=== PATIENT | female | born 1995 | race Caucasian/White ===

== ENCOUNTER 2025-02-07 11:03 | Inpatient (IN) | payer BC ==
[2025-02-07 12:07] LABS: BASOPHILS ABSOLUTE AUTO 0.1 K/mm3 (0.0-0.2); BASOPHILS PERCENT AUTO 0.9 % (0.0-1.0); EOSINOPHILS ABSOLUTE AUTO 0.1 K/mm3 (0.0-0.4); EOSINOPHILS PERCENT AUTO 1.4 % (0.0-6.0); HEMOGLOBIN 13.8 gm/dl (12.0-16.0); IMMATURE GRAN ABSOLUTE AUTO 0.03 K/mm3 (0.00-0.05); IMMATURE GRAN PERCENT AUTO 0.4 % (0.0-0.4); LYMPHOCYTES ABSOLUTE AUTO 1.1 K/mm3 (1.0-4.8); LYMPHOCYTES PERCENT AUTO 15.3 % (24.0-44.0); MEAN CORPUSCULAR HEMOGLOBIN 30.2 pg (28.0-32.0); MEAN CORPUSCULAR HGB CONC 33.7 g/dl (32.0-36.0); MEAN CORPUSCULAR VOLUME 89.7 fl (83.0-99.0); MEAN PLATELET VOLUME 9.5 fl (9.4-12.3); MONOCYTES ABSOLUTE AUTO 0.9 K/mm3 (0.0-0.8); MONOCYTES PERCENT AUTO 13.4 % (0.0-8.0); NEUTROPHILS ABSOLUTE AUTO 4.8 K/mm3 (1.8-7.7); NEUTROPHILS PERCENT AUTO 68.6 % (41.0-71.0); PLATELET COUNT,PLT 290 K/mm3 (150-400); RED BLOOD CELL COUNT 4.57 M/mm3 (4.10-5.30); WHITE BLOOD CELL COUNT,WBC 6.95 K/mm3 (3.9-11.3)
[2025-02-07 12:18] LABS: APPEARANCE,URINE CLEAR (Clear); BILIRUBIN,URINE 1+ (Negative); COLOR,URINE YELLOW (Yellow); GLUCOSE,URINE NEGATIVE (Negative); KETONES,URINE 1+ (Negative); LEUKOCYTE ESTERASE,URINE NEGATIVE (Negative); NITRITE,URINE NEGATIVE (Negative); OCCULT BLOOD,URINE NEGATIVE (Negative); PH,URINE 6.5 (5.0-8.0); PROTEIN,URINE 1+ (Negative); UROBILINOGEN,URINE 0.2 (0.2-1.0)
[2025-02-07 12:22] LABS: A/G RATIO 0.8 (1-2); ALBUMIN 3.2 g/dl (3.4-5.0); ANION GAP 10.4 (5-15); BILIRUBIN TOTAL 0.3 mg/dL (0.2-1.0); BUN/CREATININE RATIO 6.3 (14-18); C-REACTIVE PROTEIN 9.16 mg/dL (<0.30); CALCIUM 9.1 mg/dL (8.5-10.1); CREATININE 0.8 mg/dL (0.55-1.02); EST CRCL DRUG DOSING (CG) 93.37 mL/min; MAGNESIUM 1.8 mg/dL (1.8-2.4); POTASSIUM,K 3.4 mEq/L (3.5-5.1); PROTEIN TOTAL,TP 7.2 g/dl (6.4-8.2)
[2025-02-07 12:29] LABS: BACTERIA,URINE FEW /hpf (FEW); MUCUS,URINE MANY /hpf (FEW); RBC,URINE 0-5 /hpf (0-5); WBC,URINE 0-5 /hpf (0-5)
[2025-02-07] MEDS: Sodium Chloride 0.9% 10 ML Syringe FLUSH PRN (12:45)
[2025-02-07] MEDS: Iopamidol 612 MG/ML 100 ML Bottle IVPUSH ONE (12:45)
[2025-02-07] MEDS ORDERED: Naloxone 0.4 MG/ML SDV IVPUSH PRN (14:30)
[2025-02-07] MEDS: Sodium Chloride 0.9% 1,000 ML IV ONE (14:41)
[2025-02-07] MEDS: Ketorolac 30 MG/ML SDV IVPUSH ONE (14:42)
[2025-02-07] MEDS: Morphine 4 MG/ML Syringe IVPUSH ONE (14:42)
[2025-02-07] MEDS ORDERED: Ondansetron 4 MG/2 ML SDV IV PRN (15:01)
[2025-02-07] MEDS ORDERED: Acetaminophen 325 MG Tab PO PRN (15:01)
[2025-02-07] MEDS: Nicotine 14 MG/24 Hr Patch TRDERM SCH (19:57)
[2025-02-07] MEDS: Azithromycin 500 MG in Sodium Chloride 0.9% 250 ML IV SCH (19:57)
[2025-02-07] MEDS: Pantoprazole 40 MG Vial IVPUSH SCH (19:57)
[2025-02-07] MEDS: Morphine 2 MG/ML SYRINGE IVPUSH PRN (20:13)
[2025-02-07] MEDS: LORazepam 0.5 MG Tab PO PRN (20:52)
[2025-02-07] MEDS: oxyCODONE 5 MG Tab PO PRN (20:52)
[2025-02-07] MEDS: Melatonin 3 MG Tab PO PRN (22:50)
[2025-02-08] MEDS: Dextrose 5%-0.45% NaCl 1,000 ML IV SCH (03:56)
[2025-02-08 06:23] LABS: C. TRACHOMATIS BY PCR NOT DETECTED; N. GONORRHOEAE BY PCR NOT DETECTED
[2025-02-08 07:56] LABS: HEMATOCRIT 35.1 % (37.0-47.0); MEAN CORPUSCULAR HEMOGLOBIN 29.8 pg (28.0-32.0); MEAN CORPUSCULAR HGB CONC 32.8 g/dl (32.0-36.0); MEAN CORPUSCULAR VOLUME 90.9 fl (83.0-99.0); MEAN PLATELET VOLUME 9.4 fl (9.4-12.3); PLATELET COUNT,PLT 231 K/mm3 (150-400); RED BLOOD CELL COUNT 3.86 M/mm3 (4.10-5.30); WHITE BLOOD CELL COUNT,WBC 5.18 K/mm3 (3.9-11.3)
[2025-02-08 07:57] LABS: HEMOGLOBIN 11.5 gm/dl (12.0-16.0)
[2025-02-08 08:16] LABS: ANION GAP 11.5 (5-15); BUN/CREATININE RATIO 3.3 (14-18); C-REACTIVE PROTEIN 6.2 mg/dL (<0.30); CALCIUM 8.5 mg/dL (8.5-10.1); CREATININE 0.6 mg/dL (0.55-1.02); EST CRCL DRUG DOSING (CG) 124.49 mL/min; POTASSIUM,K 3.5 mEq/L (3.5-5.1)
[2025-02-08] MEDS ORDERED: Sodium Chloride 0.9% 10 ML Syringe FLUSH PRN (10:23)
[2025-02-08] MEDS ORDERED: Lactated Ringers 1,000 ML IV SCH (10:30)
[2025-02-08] MEDS ORDERED: Sodium Chloride 0.9% 10 ML Syringe FLUSH SCH (21:00)
[2025-02-10 12:42] LABS: CALPROTECTIN,FECAL 463 ug/g (<=49)
== END 2025-02-08 13:49 | DRG 249 ==
LOC: JD.ED 11:03 → JD.MS 15:01
PROVIDERS: ADMIT Family Medicine; ATTEND Student in an Organized Health Care Education/Training Program
DX: K52.9 Noninfective gastroenteritis and colitis, unspecified (principal); E86.0 Dehydration; F32.A Depression, unspecified; J45.909 Unspecified asthma, uncomplicated; F41.9 Anxiety disorder, unspecified; Z79.899 Other long term (current) drug therapy
CPT/HCPCS: 36415; 74177; 74177-26; 80048; 80053; 81001; 83605; 83630; 83735; 84703; 85025; 85027; 85652; 86140; 87045; 87046; 87491; 87493; 87507; 87591; 87899; 96374; 96375; 99285-25; A9270-GY; J0456; J1885; J2270; J2470; J7030; J7050; Q9967